=== PATIENT | female | born 1990 | race Caucasian/White ===

== ENCOUNTER 2023-05-21 09:40 | Outpatient (AMB) | payer OTHER, SELFPAY ==
--- NOTE | 2023-05-21 09:49 | AM.OFFWIN_ITS ---
Intake Vital Signs 05/21/23 09:53 Height 5 ft 7 in Weight 244 lb BMI 38.2 BP 130/80 Blood Pressure Location Lt brachial Position Sitting Pulse 102 H Pulse Source Pulse Oximeter Temp 97.8 F Temp Source Temporal Artery Scan Pulse Oximetry (%) 98 Oxygen Delivery Method Room Air Intake Visit Reasons: EP diarhea dry heaves Intake Note: pt is here today for diarrhea dry hives started 1 week ago Patient Tobacco Use Status: Never used Tobacco Allergies No Known Allergies Allergy (Verified 05/21/23 09:51) Do you need a note to return to daycare/school/sports/work: No HPI HPI Comments History of Present Illness Details 33 y/o female patient who presents to [facility] in clinic with c/o diarrhea that started Friday. Reports symptoms on/off. She did not have Diarrhea Fri and . She has been Taking Pepto and Probiotic OTC with some relief. Denies nausea, vomiting, fevers or chills. Denies severe abd pain. Pt reports that symptoms started right after she ate out at a restaurant Sat. [facility] Medical History (Updated 04/16/22 @ 11:30 by Rohini Burnette MD) Obesity, morbid (more than 100 lbs over ideal weight or BMI > 40) Refused influenza vaccine Elevated systolic blood pressure reading without diagnosis of hypertension Hx of ectopic Hx of herpes zoster Surgical History (Updated 04/16/22 @ 11:05 by Rohini Burnette MD) Hx of appendectomy S/P unilateral salpingo-oophorectomy Family History (Updated 04/16/22 @ 11:08 by Rohini Burnette MD) Mother Depression Psoriasis Maternal Grandmother Breast cancer Social History Housing: House Patient Tobacco Use Status: Never used Tobacco e-Cigarette/Vaping Use: Never Used service: No Current occupational status: employed Cognitive needs: No Hearing needs: No Vision needs: Yes Female Reproductive History Menstrual Age of Menarche: 8 Review of Systems Const All systems reviewed & are unremarkable except as noted in HPI and below Physical Exam Vital Signs: Last Vital Signs Temp 97.8 F 05/21/23 09:53 Pulse 102 H 05/21/23 09:53 BP 130/80 05/21/23 09:53 Pulse Ox 98 05/21/23 09:53 Oxygen Delivery Method Room Air 05/21/23 09:53 BMI result Body Mass Index 38.2 Const General: comfortable and no acute distress Orientation/consciousness: patient oriented x3 GI Inspection: Yes normal to inspection, No distended and Yes Abdominal panniculus present Palpation (GI): Soft to palpation, nontender, no guarding, not rigid, No hepatosplenomegaly present and No Rebound tenderness present Percussion: Yes normal to percussion Auscultation: normal bowel sounds Rectal Exam - Female: deferred Neuro General: patient oriented x3 Gait exam (Neuro): Normal gait present Assessment & Plan Assessment & Plan (1) Diarrhea: Code(s): R19.7 - Diarrhea, unspecified Qualifiers: Diarrhea type: unspecified type Qualified Code(s): R19.7 - Diarrhea, unspecified Plan: - Symptoms mild - OTC remedies - Imodium PRN - BLAND diet - Hydrate well with fluids. - RTC is symptoms worse. Plan - Symptoms mild - OTC remedies - Imodium PRN - BLAND diet - Hydrate well with fluids. - RTC is symptoms worse. Coding Level of Care Code Est Pt Level 3 (98984) Diagnoses Diarrhea, unspecified type R19.7 Diarrhea type: unspecified type Time Spent (min) 15
[2023-05-21 09:53] VITALS: BP 130/80; PULSE 102; TEMP 36.6; O2SAT 98; BMI 38.2
== END 2023-05-21 11:57 | disposition home or self-care (01) ==
PROVIDERS: PCP Internal Medicine; Visit Provider Nurse Practitioner Family
DX: R19.7 Diarrhea, unspecified (principal)
CPT/HCPCS: 99213

== ENCOUNTER 2023-10-09 09:22 | Outpatient (AMB) | payer OTHER, SELFPAY ==
--- NOTE | 2023-10-09 09:38 | MHC.PC.OV ---
Vital Signs 10/09/23 09:51 Height 5 ft 7 in Weight 242 lb BMI 37.9 BP 130/86 Blood Pressure Location Lt brachial Position Sitting Pulse 71 Pulse Source Pulse Oximeter Pulse Oximetry (%) 98 Oxygen Delivery Method Room Air Intake Visit Reasons: PE Intake Note: Pt is here today for her PE Allergies No Known Allergies Allergy (Verified 10/09/23 10:21) Medication List - Last Reconciled 10/09/23 by Rohini Burnette MD etonogestrel-ethinyl estradiol 0.12-0.015 mg/24 hr (NuvaRing) vag rings vaginal Tobacco use date assessed: 10/09/23 Dental Screening Dental Screen Date: 10/09/23 Did you have a dental visit in the last 12 months?: Yes Did you have a dental problem in the last 6 months where you did not have access to dental care?: No Was dental information given to patient?: Patient has dentist HPI PE HPI Details 33-year-old lady here today for physical exam. She is currently being followed by herDr. Sia Aceves at [facility] and is currently on NuvaRing for control. She had a Pap smear done 05/22/2023 which showed ASCUS. [facility] Medical History (Updated 10/12/23 @ 16:11 by Rohini Burnette MD) Vitamin D deficiency ASCUS (atypical squamous cells of undetermined significance) on gynecologic Papanicolaou smear complicating , antepartum Obesity, morbid (more than 100 lbs over ideal weight or BMI > 40) Refused influenza vaccine Hx of ectopic Hx of herpes zoster Surgical History Hx of appendectomy S/P unilateral salpingo-oophorectomy Family History Mother Depression Psoriasis Maternal Grandmother Breast cancer Social History Housing: House Patient Tobacco Use Status: Never used Tobacco e-Cigarette/Vaping Use: Never Used service: No Current occupational status: employed Cognitive needs: No Hearing needs: No Vision needs: Yes Female Reproductive History Menstrual Age of Menarche: 8 Questionnaire PHQ-9 Over the last 2 weeks, how often have you been bothered by any of the following problems? 1. Little interest or pleasure in doing things: not at all 2. Feeling down, depressed, or hopeless: not at all 3. Trouble falling or staying asleep, or sleeping too much: not at all 4. Feeling tired or having little energy: not at all 5. Poor appetite or overeating: several days 6. Feeling bad about yourself - or that you are a failure or have let yourself or your family down: not at all 7. Trouble concentrating on things, such as reading the newspaper or watching television: not at all 8. Moving or speaking so slowly that other people could have noticed. Or the opposite - being so fidgety or restless that you have been moving around a lot more than usual: not at all 9. Thoughts that you would be better off or of hurting yourself in some way: not at all Total score: 1 Depression Screening Interpretation: Negative Depression Screening Done: Yes 67186 - PHQ-9 Billing: Yes Source: Developed by Drs. Jose J Veliz, Farida Mahoney, Anand Patten and colleagues, with an educational ezequiel from [employer]. Thrive Questionnaire Date Thrive assessed: 04/16/22 I am a: Patient What is your living situation today?: I have a steady place to live Within the past 12 months, did the food you bought not last and you didn't have the money to get more?: I choose not to answer this question Within the past 12 months, did you worry whether your food would run out before you got money to buy more?: Never true Do you have trouble paying for medicines?: No Do you have trouble getting transportation to medical appointments?: No Do you have trouble paying your heating and electricity bill?: I choose not to answer this question Do you have trouble taking care of your child, family member or friend?: No Do you have trouble with day-to-day activities such as bathing, preparing meals, shopping, managing finances, etc.?: No Are you currently unemployed and looking for a job?: No Are you interested in more education?: No Please select the resources that you would like help with: Housing/Intermediate Currently or been in a relationship where the following occur: No concerns reported THRIVE Score: 0 AUDIT C Alcohol Use Questionnaire (AUDIT-C) 1. How often do you have a drink containing alcohol?: Monthly or less 2. How many drinks containing alcohol do you have on a typical day when you are drinking?: 1 or 2 3. How often do you have six or more drinks on one occasion?: Never Total Score: 1 SHANON-7 AMB Questionnaire SHANON-7 Date SHANON - 7 assessed: 04/16/22 Feeling nervous, anxious, or on edge: 1 = Several days Not being able to stop or control worryin = Not at all Worrying too much about different things: 0 = Not at all Trouble relaxin = Not at all Being so restless that it is hard to sit still: 0 = Not at all Becoming easily annoyed or irritable: 0 = Not at all Feeling afraid as if something awful might happen: 0 = Not at all Total SHANON-7 score (0-4 normal; 5-9 mild; 10-14 moderate; 15-21 severe): 1 Source: Developed by Drs. Jose J Veliz, Farida Mahoney, Anand Patten and colleagues, with an educational ezequiel from [employer]. SHANON-7 Assessment Billing SHANON-7 Assessment Tool: SHANON-7 Assessment 60843 Review of Systems Const Denies body aches, Denies fatigue, Denies fever(s), Denies headache(s) and Denies weakness Eyes Denies change in vision ENT Denies dizziness, Denies headache(s) and Denies nasal congestion Card Denies chest pain, Denies lightheadedness, Denies palpitations and Denies dyspnea Resp Denies chest congestion, Denies cough, Denies dyspnea and Denies wheezing GI Denies abdominal pain, Denies change in bowel habits and Denies heartburn Denies hematuria, Denies urinary frequency, Denies dysuria and Denies urinary urgency Musc Reports no additional complaints Skin/Breast Denies breast pain, Denies breast mass, Denies lesions and Denies rash Neuro Denies dizziness, Denies headache(s) and Denies weakness Psych Reports no additional complaints Endo Denies fatigue, Denies polydipsia, Denies polyuria and Denies palpitations Mk/Lymph Denies easy bruising Aller/Immun Denies seasonal rhinorrhea and Denies wheezing Physical exam (Primary Care) Vital Signs: Last Vital Signs Pulse 71 07/18/24 09:51 BP 130/86 10/09/23 09:51 Pulse Ox 98 10/09/23 09:51 Oxygen Delivery Method Room Air 10/09/23 09:51 BMI result Body Mass Index 37.9 BMI Assessment/Plan discussion: High BMI High, discussed plan: lifestyle, weight reduction, dietary and physical activity Tobacco/Smoking Status: Tobacco use Status Tobacco use date assessed 10/09/23 10/09/23 09:40 Patient Tobacco Use Status Never used Tobacco 10/09/23 09:39 e-Cigarette/Vaping Use Never Used 10/09/23 09:39 PHQ-9: PHQ-9 Score PHQ-9: Total score 1 10/09/23 10:22 Depression Screening Interpretation: Negative Thrive Assessment: Date of Thrive Assessment Date Thrive assessed 04/16/22 10/09/23 09:39 Currently or been in a relationship where the following occur: No concerns reported Const General: comfortable, no acute distress, alert, awake and Physically active Nutritional Appearance: obese morbidly obese Orientation/consciousness: patient oriented x3 HENMT Head: Yes normocephalic and Yes atraumatic Ears: hearing grossly normal bilaterally, external ears normal and TM's normal bilaterally General nose exam: Normal external nose present and No nasal discharge present Face and sinus: Yes normal facial exam and Yes face symmetric Mouth: Normal oral and palatal mucosa present, oropharynx normal and moist mucous membranes Eyes General: appearance normal, both eyes and all related structures Neck Neck: Yes full ROM, Yes no lymphadenopathy and Yes supple Thyroid: Thyroid normal Chest Chest palpation & inspection: normal inspection of the chest Breast/axilla inspection: normal inspection of the breasts Breast/axilla palpation: normal palpation of the breasts Resp Effort & Inspection: normal respiratory effort and able to speak in complete sentences Auscultation: clear to auscultation bilaterally Cardio Palpation: normal PMI Rate: regular rate Rhythm: regular rhythm Heart sounds: S1 normal heart sound present and S2 normal heart sound present GI Inspection: Yes obesity Palpation (GI): Soft to palpation, nontender, no guarding and no masses Auscultation: normal bowel sounds General: Yes no CVA tenderness Back/Spine/Pelvis Back: no CVA tenderness and No back tenderness Skin General skin exam: no rashes or lesions noted Neuro General: patient oriented x3, gait normal, tone normal, moves all extremities and Normal light touch and pain sensation Extrem General: Yes full ROM, Yes no clubbing, cyanosis or edema, Yes no calf tenderness and Yes normal gait Psych Appearance: grossly normal and well kempt Mental Status: mental status grossly normal Speech and movement: Normal speech and movement present Affect: normal affect Attitude: cooperative Thought process: Normal thought process present Assessment and Plan Assessment & Plan (1) Annual visit for general adult medical examination with abnormal findings: Code(s): Z00.01 - Encounter for general adult medical examination with abnormal findings Plan: Will check appropriate labs. Recommended dental visit every 6 months and regular eye exams, at least every 2 years. Take adequate calcium in diet and vitamin-D 3 at 2000 IU per cap once a day, in addition to weight-bearing exercises to help maintain good muscle tone and weight control. Instructed to do self-breast exam, and recommended to get yearly mammogram, starting at age 40. Patient has declined getting flu vaccines in the past has had COVID vaccines in the past but does not want to get the booster, up-to-date with Tdap vaccine (2) Obesity, morbid (more than 100 lbs over ideal weight or BMI > 40): Code(s): E66.01 - Morbid (severe) obesity due to excess calories Plan: Your BMI is above the ideal range. Discussed need to increase activity and weight reduction. Recommended focusing on improving health instead of dieting. Mediterranean diet is a healthy diet that helps, limit food high in fat, sugar, and calories. Eat slowly, pay attention to portion sizes, plan your meals ahead of time, start regular physical activity, at least 150 minutes of moderate intensity exercise, or 90 minutes per week of vigorous exercise. Keeping a food diary, tracking what you eat and your physical activity can help assess what improvements you can make. There are many health problems associated with being overweight/obese, so it is important to improve your diet and exercise. There are medications and surgical options available, but Lifestyle changes are the 1st step. (3) Vitamin D deficiency: Code(s): E55.9 - Vitamin D deficiency, unspecified Plan: Will check vitamin-D level (4) Refused influenza vaccine: Code(s): Z28.21 - Immunization not carried out because of patient refusal (5) ASCUS (atypical squamous cells of undetermined significance) on gynecologic Papanicolaou smear complicating , antepartum: Comment: Seen on Pap 05/22/[address] Aceves at [facility] Code(s): O28.2 - Abnormal cytological finding on screening of mother; R87.619 - Unspecified abnormal cytological findings in specimens from cervix uteri Plan: Currently followed by Dr. Aceves at [facility] Orders: Orders Lipid Panel 10/11/23 E55.9 - Vitamin D deficiency, unspecified, E66.01 - Morbid (severe) obesity due to excess calories, Z13.1 - Encounter for screening for diabetes mellitus, Z13.220 - Encounter for screening for lipoid disorders Vitamin D 25-OH Total 10/11/23 E55.9 - Vitamin D deficiency, unspecified, E66.01 - Morbid (severe) obesity due to excess calories, Z13.1 - Encounter for screening for diabetes mellitus, Z13.220 - Encounter for screening for lipoid disorders Glucose Fasting 10/11/23 E55.9 - Vitamin D deficiency, unspecified, E66.01 - Morbid (severe) obesity due to excess calories, Z13.1 - Encounter for screening for diabetes mellitus, Z13.220 - Encounter for screening for lipoid disorders Coding Level of Care Code Est Pt Prev Care 18-39y(27411) Diagnoses Annual visit for general adult medical examination with abnormal findings Z00.01 Obesity, morbid (more than 100 lbs over ideal weight or BMI > 40) E66.01 Vitamin D deficiency E55.9 Refused influenza vaccine Z28.21 ASCUS (atypical squamous cells of undetermined significance) on gynecologic Papanicolaou smear complicating , antepartum O28.2; R87.619 Additional Codes SHANON-7 Assessment Billing - SHANON-7 Assessment Tool: SHANON-7 Assessment 55092 ([id number])
[2023-10-09 09:51] VITALS: BP 130/86; PULSE 71; O2SAT 98; BMI 37.9
== END 2023-10-09 10:39 | disposition home or self-care (01) ==
PROVIDERS: PCP Internal Medicine; Visit Provider Internal Medicine
DX: Z00.00 Encounter for general adult medical examination without abnormal findings (principal); E66.01 Morbid (severe) obesity due to excess calories; E55.9 Vitamin D deficiency, unspecified; Z68.37 Body mass index [BMI] 37.0-37.9, adult; Z28.21 Immunization not carried out because of patient refusal; O28.2 Abnormal cytological finding on antenatal screening of mother; R87.619 Unspecified abnormal cytological findings in specimens from cervix uteri
CPT/HCPCS: 99395

== ENCOUNTER 2023-10-11 13:05 | Outpatient (REF) | payer OTHER, SELFPAY ==
[2023-10-11 15:54] LABS: Cholesterol 174 mg/dL (<200); Glucose Fasting 82 mg/dL (60-99); HDL Cholesterol 53 mg/dL (>40); LDL Cholesterol Calculated 84 mg/dL (<100); Triglycerides 188 mg/dL (<150)
[2023-10-11 16:09] LABS: Vitamin D 25-OH Total 71.8 ng/mL (>30)
== END 2023-10-11 13:06 | disposition home or self-care (01) ==
LOC: HO.HMGCLDS 13:05
PROVIDERS: PCP Internal Medicine; Visit Provider Internal Medicine
DX: E66.01 Morbid (severe) obesity due to excess calories (principal); Z13.220 Encounter for screening for lipoid disorders; Z13.1 Encounter for screening for diabetes mellitus; E55.9 Vitamin D deficiency, unspecified
CPT/HCPCS: 36415; 80061; 82306; 82947

== ENCOUNTER → 2024-01-08 08:52 | Outpatient (BNVA) | payer OTHER, SELFPAY | PROVIDERS: PCP Internal Medicine ==

== ENCOUNTER 2024-02-05 08:09 | Outpatient (AMB) | payer OTHER, SELFPAY ==
[2024-02-05 08:19] VITALS: BP 130/80; PULSE 80; TEMP 36.6; O2SAT 98
--- NOTE | 2024-02-05 08:19 | MHC.OFFWIV ---
Intake Vital Signs 02/05/24 08:19 Height 5 ft 7 in BP 130/80 Blood Pressure Location Rt brachial Position Sitting Pulse 80 Pulse Source Pulse Oximeter Temp 97.9 F Temp Source Oral Pulse Oximetry (%) 98 Oxygen Delivery Method Room Air Intake Visit Reasons: EP pain in lt shoulder Intake Note: pt is here for pain in left shoulder, lifted boxes at work Patient Tobacco Use Status: Never used Tobacco Allergies No Known Allergies Allergy (Verified 02/05/24 08:20) Do you need a note to return to daycare/school/sports/work: No HPI EP pain in lt shoulder HPI Details This note is constructed using voice recognition software. While every effort has been made to ensure accuracy, balance bridge assembler errors may have been included. The patient is a 33 year old female who presents to the clinic today with left shoulder pain for the past 2 weeks after lifting heavy boxes at work. She denies numbness and tingling in her hands. She does report that she has got a history of anxiety, which has led her to be concerned ?more than is appropriate? about the shoulder pain. She has intermittently tried ibuprofen and heat which have helped each time she uses it. [facility] Medical History (Updated 10/12/23 @ 16:11 by Rohini Burnette MD) Vitamin D deficiency ASCUS (atypical squamous cells of undetermined significance) on gynecologic Papanicolaou smear complicating , antepartum Obesity, morbid (more than 100 lbs over ideal weight or BMI > 40) Refused influenza vaccine Hx of ectopic Hx of herpes zoster Surgical History Hx of appendectomy S/P unilateral salpingo-oophorectomy Family History Mother Depression Psoriasis Maternal Grandmother Breast cancer Social History Housing: House Patient Tobacco Use Status: Never used Tobacco e-Cigarette/Vaping Use: Never Used service: No Current occupational status: employed Cognitive needs: No Hearing needs: No Vision needs: Yes Female Reproductive History Menstrual Age of Menarche: 8 Review of Systems Const All systems reviewed & are unremarkable except as noted in HPI and below Physical Exam Vital Signs: Last Vital Signs Temp 97.9 F 11/14/24 08:19 Pulse 80 02/05/24 08:19 BP 130/80 02/05/24 08:19 Pulse Ox 98 02/05/24 08:19 Oxygen Delivery Method Room Air 02/05/24 08:19 Const General: cooperative, healthy appearing, comfortable, no acute distress and well developed Orientation/consciousness: patient oriented x3 Limitations: no limitations Neck Neck: Yes normal visual inspection and Yes full ROM Resp Effort & Inspection: normal respiratory effort and able to speak in complete sentences Auscultation: clear to auscultation bilaterally Cardio Rate: regular rate Rhythm: regular rhythm Heart sounds: normal S1 and S2 Skin General skin exam: no rashes or lesions noted Neuro General: patient oriented x3 Extrem Other: Left shoulder full range of motion. Neck full range of motion. Strength 5/5. Increased muscle bulging left trapezius. Distal neurovascular exam intact. No ecchymosis, erythema, or edema. General: Yes normal to inspection Assessment & Plan Assessment & Plan (1) Strain of left trapezius muscle: Code(s): S46.812A - Strain of other muscles, fascia and tendons at shoulder and upper arm level, left arm, initial encounter Qualifiers: Encounter type: initial encounter Qualified Code(s): S46.812A - Strain of other muscles, fascia and tendons at shoulder and upper arm level, left arm, initial encounter Plan: Advised rest, ice/heat, NSAIDs for pain, and trial of muscle relaxers. Patient declined to have muscle relaxers for daytime use, would like to take for the next 3 days at bedtime only. Advised follow up with worsening or failure to resolve. HEP provided. Plan See above for full details and plan. Medications: New cyclobenzaprine 5 mg PO BEDTIME PRN 3 tabs 0RF Muscle Spasm 3 days Coding Level of Care Code Est Pt Level 3 (88896) Diagnoses Strain of left trapezius muscle, initial encounter S46.812A Encounter type: initial encounter
== END 2024-02-05 11:39 | disposition home or self-care (01) ==
PROVIDERS: PCP Internal Medicine; Visit Provider Registered Nurse
DX: S46.812A Strain of other muscles, fascia and tendons at shoulder and upper arm level, left arm, initial encounter (principal)

== ENCOUNTER → 2024-02-12 07:27 | Outpatient (BNVA) | payer OTHER, SELFPAY | PROVIDERS: PCP Internal Medicine ==

== ENCOUNTER 2024-07-05 07:57 | Outpatient (REF) | payer OTHER, SELFPAY ==
--- OUTSIDE RECORDS SUMMARY | 2024-07-05 08:01 | XMS_ITS | Clinical Summary ---
Author Organization [facility] Facility Address [address] [place] [address] Care Team Providers Care Gas Leak Inspector Name Role Phone Tracy Burnette MD Primary Care Provider [phone] Social History Tobacco Use Types Packs/Day Years Used Date Smoking Tobacco: Never Assessed Comments Unknown Sex and Gender Information Value Date Recorded Sex Assigned at Not on file Legal Sex Female 2:39 PM EST Gender Identity Not on file Sexual Orientation Not on file Plan of Treatment Health Maintenance Due Date Last Done Comments Influenza Vaccine (Season Ended) 2024 Hepatitis B Vaccine Completed 03/11/2001, 10/27/2000, 08/27/2000 Pneumococcal Vaccine: Peds ( 0 to 5 Years) and At-Risk Patients (6 to 49 Years) Aged Out No longer eligi ble based on patient's age to complete this topic Insurance [employer]ign[employer] C[employer] Care Teams Gas Leak Inspector Relationship Specialty Start Date End Date Tracy Burnette MD [facility] [place] [address] PCP - General Internal Medicine 04/30/22
--- OUTSIDE RECORDS SUMMARY | 2024-07-05 08:01 | XMS_ITS | Patient Health Record ---
Demographics Address [address] [place] [address] Mobile Preferred Language en Marital Status unmarried Adventism Affiliation Unknown Race White Ethnic Group Not or Lati no Author Organization Total [facility] Address [address] [place] [address] Care Team Providers Care Pricer Name Role Phone Xiomy Ogden Unavailable [phone] Reason For Referral No Information Immunizations Vaccine Route Administration Date Status Comme nts HPV (human papillomavirus), quadrivalent, 3 dose schedule Unknown 06/11/2011 Pending HPV (human papillomavirus), quadrivalent, 3 dose schedule Intramuscular 12/30/2012 Pending HPV (human papillomavirus), quadrivalent, 3 dose schedule Intramuscular 03/10/2013 Pending HPV (human papillomavirus), quadrivalent, 3 dose schedule Intramuscular 07/07/2013 Pending Social History Tobacco Use: Social History Observation Description Date Details (start date - stop date) Never Smoker NA - NA Tobacco Use/Smoking Question Answer Notes Are you a nonsmoker Alcohol Screen (Audit-C) Question Answer Notes Did you have a drink contain ing alcohol in the past year? Yes How often did you have a dri nk containing alcohol in the past year? 2 to 4 times a month (2 points) How many drinks did you have on a typical day when you were drinking in the past year? 1 or 2 drinks (0 point) Points 2 Interpretation Negative Section Notes: Vegetarian Vegetarian Vegetarian Vegetarian Vegetarian Problems Problem Type SNOMED Code ICD Code Onset Dates Problem Status W/U Status Risk Notes Problem Gynecological examination normal ([id number]) Routine gynecological examination (V72.31) Active confirmed Diag Plan Of Treatment Pending Test Test Name Order Date TYPE AND SCREEN 08/02/2015 Insurance Providers Payer Name Payer Address Payer Phone Subscriber Number Group Number Insured Name Patient Relationship to Insured Coverage Start Date Coverage End Date [facility] [address] [place] [address] [id number] RENETTA FITZPATRICK Self - patient is the insured Medical (General) History Medical History History ICD Code PE Tubes Pelvic and perineal pain R10.2 Surgical History Surgery Date(Month/Year) PE Tubes Appendectomy with Dr. Urena 08/[address] 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
[2024-07-05 11:14] LABS: Anion Gap 13 (12-20); Blood Urea Nitrogen 11 mg/dL (9-16); Calcium 9.5 mg/dL (8.4-10.2); Carbon Dioxide 23 mmol/L (22-29); Chloride 107 mmol/L (96-108); Estimated Glomerular Filt Rate > 60; Glucose Fasting 92 mg/dL (60-99); Potassium 4.6 mmol/L (3.3-5.1); Sodium 138 mmol/L (135-145)
== END 2024-07-05 07:58 | disposition home or self-care (01) ==
LOC: HO.HMGCLDS 07:57
PROVIDERS: PCP Internal Medicine; Visit Provider Internal Medicine
DX: I10 Essential (primary) hypertension (principal)
CPT/HCPCS: 36415; 80048

== ENCOUNTER → 2024-07-08 09:00 | Outpatient (BNVA) | payer OTHER, SELFPAY | PROVIDERS: PCP Internal Medicine ==

== ENCOUNTER 2024-07-14 08:30 | Outpatient (AMB) | payer OTHER, SELFPAY ==
--- OUTSIDE RECORDS SUMMARY | 2024-07-14 08:54 | XMS_ITS | Clinical Summary ---
Author Organization [facility] Facility Address [address] [place] [address] Care Team Providers Care Field Interviewer Name Role Phone Tracy Burnette MD Primary Care Provider [phone]- [phone] Social History Tobacco Use Types Packs/Day Years [...] this topic Insurance [employer] C[employer] Care Teams Field Interviewer Relationship Specialty Start Date End Date Tracy Burnette [place] [address] PCP - General Internal Medicine 04/30/22
--- OUTSIDE RECORDS SUMMARY | 2024-07-14 08:54 | XMS_ITS | Patient Health Record ---
Demographics Address [address] [address] [place] [address] Mobile Preferred Language en Marital Status unmarried Nondenominational Affiliation Unknown Race White Ethnic Group Not or Lati no Author Organization [facility] Address [address] [place] [address] Care Team Providers Care Middle Card Tender Name Role Phone Xiomy Ogden Unavailable [phone] Reason For Referral No Information Immunizations Vaccine [...] Status Risk Notes Problem Gynecological examination normal ([id number]) Routine gynecological examination (V72.31) Active confirmed Diag Plan Of Treatment Pending Test Test Name Order Date TYPE AND SCREEN 08/02/2015 Insurance Providers Payer Name Payer Address Payer Phone Subscriber Number Group Number Insured Name Patient Relationship to Insured Coverage Start Date Coverage End Date [facility] [address] [place] [address] [id number] RENETTA FITZPATRICK Self - patient is the insured Medical (General) History Medical History History ICD Code PE Tubes Pelvic and perineal pain R10.2 Surgical History Surgery Date(Month/Year) PE Tubes Appendectomy with Dr. Urena 08/[address] 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
--- NOTE | 2024-07-14 09:04 | MHC.PC.OV ---
Vital Signs 07/14/24 09:05 07/14/24 09:40 Height 5 ft 7 in Weight 233 lb BMI 36.5 BP 136/90 H 135/90 H Blood Pressure Location Rt brachial Lt brachial Position Sitting Sitting Respiration 15 Pulse 87 Pulse Source Pulse Oximeter Temp 98.6 F Temp Source Oral Pulse Oximetry (%) 100 Oxygen Delivery Method Room Air Intake Visit Reasons: tongue swollen/able to eat or swallow Allergies No Known Allergies Allergy (Verified 07/14/24 09:18) Medication List - Last Reconciled 07/14/24 by Rohini Burnette MD cholecalciferol (vitamin D3) 50 mcg PO DAILY docosahexaenoic acid ( DHA) mg PO etonogestrel-ethinyl estradiol 0.12-0.015 mg/24 hr (NuvaRing) vag rings vaginal Tobacco use date assessed: 07/14/24 Dental Screening Dental Screen Date: 07/14/24 Did you have a dental visit in the last 12 months?: Yes Did you have a dental problem in the last 6 months where you did not have access to dental care?: No Was dental information given to patient?: Patient has dentist HPI tongue swollen/able to eat or swallow HPI Details 34-year-old lady with hypertension, here today for follow-up after she started having swelling of her tongue with indentation decide, which she attributes to losartan. She has been on that for the latest 2 weeks prior to appearance of symptoms. She was advised by the geothermal operations engineer provided to take Benadryl and stop taking losartan right away. Patient reports improvement of symptoms. Denies any difficulty swallowing, no swelling of the lips, no difficulty breathing, no cough or wheezing reported. At present patient states that tongue is almost back to normal, still notice some indentation on sides of her tongue but not as pronounced that it was 2 days ago [facility] Medical History (Updated 07/14/24 @ 09:43 by Rohini Burnette MD) Generalized anxiety disorder Essential hypertension Vitamin D deficiency ASCUS (atypical squamous cells of undetermined significance) on gynecologic Papanicolaou smear complicating , antepartum Obesity, morbid (more than 100 lbs over ideal weight or BMI > 40) Refused influenza vaccine Hx of ectopic Hx of herpes zoster Surgical History Hx of appendectomy S/P unilateral salpingo-oophorectomy Family History Mother Depression Psoriasis Maternal Grandmother Breast cancer Social History Housing: House Patient Tobacco Use Status: Never used Tobacco e-Cigarette/Vaping Use: Never Used service: No Current occupational status: employed Cognitive needs: No Hearing needs: No Vision needs: Yes Female Reproductive History Menstrual Age of Menarche: 8 Questionnaire PHQ-9 Over the last 2 weeks, how often have you been bothered by any of the following problems? 1. Little interest or pleasure in doing things: not at all 2. Feeling down, depressed, or hopeless: not at all 3. Trouble falling or staying asleep, or sleeping too much: not at all 4. Feeling tired or having little energy: not at all 5. Poor appetite or overeating: not at all 6. Feeling bad about yourself - or that you are a failure or have let yourself or your family down: not at all 7. Trouble concentrating on things, such as reading the newspaper or watching television: not at all 8. Moving or speaking so slowly that other people could have noticed. Or the opposite - being so fidgety or restless that you have been moving around a lot more than usual: not at all 9. Thoughts that you would be better off or of hurting yourself in some way: not at all Total score: 0 Depression Screening Interpretation: Negative Depression Screening Done: Yes 35925 - PHQ-9 Billing: Yes Source: Developed by Drs. Jose J Veliz, Farida Mahoney, Anand Patten and colleagues, with an educational ezequiel from [employer]. Thrive Questionnaire Date Thrive assessed: 07/13/24 I am a: Patient What is your living situation today?: I have a steady place to live Within the past 12 months, did the food you bought not last and you didn't have the money to get more?: I choose not to answer this question Within the past 12 months, did you worry whether your food would run out before you got money to buy more?: I choose not to answer this question Do you have trouble paying for medicines?: No Do you have trouble getting transportation to medical appointments?: No Do you have trouble paying your heating and electricity bill?: I choose not to answer this question Do you have trouble taking care of your child, family member or friend?: No Do you have trouble with day-to-day activities such as bathing, preparing meals, shopping, managing finances, etc.?: No Are you currently unemployed and looking for a job?: No Are you interested in more education?: No Please select the resources that you would like help with: None Currently or been in a relationship where the following occur: No concerns reported THRIVE Score: 0 AUDIT C Alcohol Use Questionnaire (AUDIT-C) 1. How often do you have a drink containing alcohol?: Never 2. How many drinks containing alcohol do you have on a typical day when you are drinking?: 1 or 2 3. How often do you have six or more drinks on one occasion?: Never Total Score: 0 SHANON-7 AMB Questionnaire SHANON-7 Date SHANON - 7 assessed: 04/16/22 Feeling nervous, anxious, or on edge: 1 = Several days Not being able to stop or control worryin = Not at all Worrying too much about different things: 1 = Several days Trouble relaxin = Several days Being so restless that it is hard to sit still: 0 = Not at all Becoming easily annoyed or irritable: 1 = Several days Feeling afraid as if something awful might happen: 0 = Not at all Total SHANON-7 score (0-4 normal; 5-9 mild; 10-14 moderate; 15-21 severe): 4 Source: Developed by Drs. Jose J Veliz, Farida Mahoney, Anand Patten and colleagues, with an educational ezequiel from [employer]. Review of Systems Const All systems reviewed & are unremarkable except as noted in HPI and below Physical exam (Primary Care) Vital Signs: Last Vital Signs Temp 98.6 F 07/14/24 09:05 Pulse 87 07/14/24 09:05 Resp 15 07/14/24 09:05 BP 135/90 H 07/14/24 09:40 Pulse Ox 100 07/14/24 09:05 Oxygen Delivery Method Room Air 07/14/24 09:05 BMI result Body Mass Index 36.5 Tobacco/Smoking Status: Tobacco use Status Tobacco use date assessed 07/14/24 07/14/24 09:09 Patient Tobacco Use Status Never used Tobacco 07/14/24 09:09 e-Cigarette/Vaping Use Never Used 07/14/24 09:09 PHQ-9: PHQ-9 Score PHQ-9: Total score 0 07/14/24 09:19 Depression Screening Interpretation: Negative Thrive Assessment: Date of Thrive Assessment Date Thrive assessed 07/13/24 07/14/24 09:09 Currently or been in a relationship where the following occur: No concerns reported Const Other: Alert oriented x3, no acute distress noted ambulatory normal gait HENMT Head: Yes normocephalic Ears: external ears normal, TM's normal bilaterally and EAC's normal General nose exam: Normal external nose present Face and sinus: Yes face symmetric Mouth: Normal oral and palatal mucosa present, oropharynx normal, moist mucous membranes, no audible dysphonia, no drooling, no muffled voice and tongue abnormal (Some scalloping noted on sides of tongue, no swelling seen, no lesions) Eyes General: appearance normal, both eyes and all related structures Neck Neck: Yes normal visual inspection, Yes full ROM, Yes no lymphadenopathy and Yes supple Thyroid: Thyroid normal (Nonpalpable) Resp Effort & Inspection: normal respiratory effort and able to speak in complete sentences Auscultation: clear to auscultation bilaterally and no wheezes Cardio Other: S1-S2 present regular rate and rhythm GI Other: Normal bowel sounds, soft, nontender with no mass palpated Skin General skin exam: no rashes or lesions noted Coding Level of Care Code Est Pt Level 4 (83622) Diagnoses Essential hypertension I10 Allergic reaction caused by a drug T78.40XA Additional Codes PHQ-9 - 77722 - PHQ-9 Billing: Yes ([id number]) Assessment & Plan Assessment & Plan (1) Essential hypertension: Code(s): I10 - Essential (primary) hypertension Category: Medical Plan: Prescription sent for labetalol 50 mg twice a day, fasting labs ordered. See nurse navigator for blood pressure check in 1 week (2) Allergic reaction caused by a drug: Code(s): T78.40XA - Allergy, unspecified, initial encounter Plan: Losartan discontinued Orders: Orders Complete Blood Count Auto Diff 11/20/24 F41.1 - Generalized anxiety disorder, I10 - Essential (primary) hypertension, Z13.1 - Encounter for screening for diabetes mellitus, Z13.220 - Encounter for screening for lipoid disorders Alanine Aminotransferase 11/20/24 F41.1 - Generalized anxiety disorder, I10 - Essential (primary) hypertension, Z13.1 - Encounter for screening for diabetes mellitus, Z13.220 - Encounter for screening for lipoid disorders Basic Metabolic Panel Fasting 11/20/24 F41.1 - Generalized anxiety disorder, I10 - Essential (primary) hypertension, Z13.1 - Encounter for screening for diabetes mellitus, Z13.220 - Encounter for screening for lipoid disorders Aspartate Amino Transferase 11/20/24 F41.1 - Generalized anxiety disorder, I10 - Essential (primary) hypertension, Z13.1 - Encounter for screening for diabetes mellitus, Z13.220 - Encounter for screening for lipoid disorders Lipid Panel 11/20/24 F41.1 - Generalized anxiety disorder, I10 - Essential (primary) hypertension, Z13.1 - Encounter for screening for diabetes mellitus, Z13.220 - Encounter for screening for lipoid disorders TSH reflex Free T4 11/20/24 F41.1 - Generalized anxiety disorder, I10 - Essential (primary) hypertension, Z13.1 - Encounter for screening for diabetes mellitus, Z13.220 - Encounter for screening for lipoid disorders Medications: New labetalol Try initially taking 1/2 tablet or 50 mg twice a day 100 mg PO BID 60 tabs 0RF I10 - Essential (primary) hypertension
[2024-07-14 09:05] VITALS: BP 136/90; PULSE 87; RESP 15; TEMP 37; O2SAT 100; BMI 36.5
[2024-07-14 09:40] VITALS: BP 135/90
== END 2024-07-14 10:41 | disposition home or self-care (01) ==
LOC: HO.HMCC 08:31
PROVIDERS: PCP Internal Medicine; Visit Provider Internal Medicine
DX: I10 Essential (primary) hypertension (principal); T78.40XA Allergy, unspecified, initial encounter

== ENCOUNTER → 2024-07-14 08:30 | Outpatient (BNVA) | payer OTHER, SELFPAY | PROVIDERS: PCP Internal Medicine; Visit Provider Internal Medicine | DX: I10 Essential (primary) hypertension (principal); T46.5X5A Adverse effect of other antihypertensive drugs, initial encounter; Y92.9 Unspecified place or not applicable | CPT/HCPCS: 96127 ==

== ENCOUNTER → 2024-07-23 09:53 | Outpatient (BNVA) | payer OTHER, SELFPAY | PROVIDERS: PCP Internal Medicine ==

== ENCOUNTER 2024-09-23 11:21 | Outpatient (AMB) | payer OTHER, SELFPAY ==
--- NOTE | 2024-09-23 11:44 | AM.OFFWIN_ITS ---
Intake Vital Signs 09/23/24 11:45 Height 5 ft 7 in Weight 233 lb 4 oz BMI 36.5 BP 136/90 H Blood Pressure Location Lt brachial Position Sitting Pulse 88 Pulse Source Pulse Oximeter Temp 98.8 F Temp Source Oral Pulse Oximetry (%) 97 Oxygen Delivery Method Room Air Intake Visit Reasons: EP LT ear pain Intake Note: Patient present with left ear dull ache, with soreness in her jaw times 2 days Patient Tobacco Use Status: Never used Tobacco Ironer Hand Required: No Is last menstrual period known: No Post menopausal: No Patient : No Allergies No Known Allergies Allergy (Verified 07/14/24 09:18) Do you need a note to return to daycare/school/sports/work: No HPI HPI Comments History of Present Illness Details History of Present Illness - The patient is a 34-year-old female pr esenting with jaw pain and soreness. - Reports soreness in the back of the ja w on the left side, associated with jaw movements. - The pain is intermittent and radiates to the left ear. - She states that her pain isn't caused by chewing and talking. - She had pain at the left TMJ when she was resting her face on her hands. - History of ear infections with childho od ear tubes and a burst eardrum. - Bruxism noted, with unsuccessful attem pts at using mouth guards due to gag reflex. - She denies dental pain, gingivitis, fe michelle, chills, CP, SOB, JUDD, cold symptoms, discharge in the ear, facial swelling, or hearing loss. Physical Exam General: Cooperative, healthy appearing, comfortable, no acute distress and well developed Orientation: Patient oriented x3 Head: FROM of the TMJ, no click noted. TTP of the left TMJ. No TTP of the mandible or facial bones bilaterally. Ears: Hearing grossly normal bilaterally. No tragus or mastoid tenderness noted bilaterally. Some ear wax present in the left canal, TM is normal and bony landmarks are normal and visualized. No discharge or swelling to the canal. Right ear is normal. Nose: Normal external nose present Face and sinus: Normal facial exam, no sinus pain to palpation Eyes: Appearance normal, both eyes and all related structures Neck: Normal visual inspection and Yes full ROM. No lymphadenopathy noted. Respiratory: Normal respiratory effort and able to speak in complete sentences. Clear to auscultation bilaterally. No w/r/r noted. Cardiovascular: Regular rate and rhythm. Normal S1 and S2. No m/r/g noted. Skin: No rashes or lesions noted Patient was informed and verbally consented to the use of an ambient scribe for clinic note documentation during this visit. [facility] Medical History (Updated 07/14/24 @ 09:43 by Rohini Burnette MD) Generalized anxiety disorder Essential hypertension Vitamin D deficiency ASCUS (atypical squamous cells of undetermined significance) on gynecologic Papanicolaou smear complicating , antepartum Obesity, morbid (more than 100 lbs over ideal weight or BMI > 40) Refused influenza vaccine Hx of ectopic Hx of herpes zoster Surgical History Hx of appendectomy S/P unilateral salpingo-oophorectomy Family History Mother Depression Psoriasis Maternal Grandmother Breast cancer Social History Housing: House Patient Tobacco Use Status: Never used Tobacco e-Cigarette/Vaping Use: Never Used Patient : No service: No Current occupational status: employed Cognitive needs: No Hearing needs: No Vision needs: Yes Female Reproductive History Menstrual Age of Menarche: 8 Review of Systems Const All systems reviewed & are unremarkable except as noted in HPI and below Physical Exam Vital Signs: Last Vital Signs Temp 98.8 F 09/23/24 11:45 Pulse 88 09/23/24 11:45 BP 136/90 H 09/23/24 11:45 Pulse Ox 97 09/23/24 11:45 Oxygen Delivery Method Room Air 09/23/24 11:45 BMI result Body Mass Index 36.5 Assessment & Plan Assessment & Plan (1) Jaw pain: Code(s): R68.84 - Jaw pain Plan Most likely TMJ vs jaw pain vs ear infection Plan - Tylenol or motrin as needed for pain - Recommend consultation with a dentist for a custom-fitted mouth guard to address bruxism and alleviate jaw muscle soreness. - Continue monitoring for any changes in symptoms or development of new symptoms related to the jaw or ear. Coding Level of Care Code Est Pt Level 3 (90598) Diagnoses Jaw pain R68.84
[2024-09-23 11:45] VITALS: BP 136/90; PULSE 88; TEMP 37.1; O2SAT 97; BMI 36.5
--- OUTSIDE RECORDS SUMMARY | 2024-09-23 12:08 | XMS_ITS | Clinical Summary ---
Author Organization [facility] Facility Address [address] [place] [address] Care Team Providers Care Exerciser Name Role Phone Tracy Burnette MD Primary Care Provider [phone] Social History Tobacco Use Types Packs/Day Years [...] this topic Insurance [employer] Care Teams Exerciser Relationship Specialty Start Date End Date Tracy Burnette MD [place] [address] PCP - General Internal Medicine 04/30/22
== END 2024-09-23 12:40 | disposition home or self-care (01) ==
PROVIDERS: PCP Internal Medicine; Visit Provider Physician Assistant Medical
DX: R68.84 Jaw pain (principal)

== ENCOUNTER 2024-11-19 07:23 | Outpatient (REF) | payer OTHER, SELFPAY ==
--- OUTSIDE RECORDS SUMMARY | 2024-11-19 07:25 | XMS_ITS | Patient Health Record ---
Demographics Address [address] [place] [address] Mobile Preferred Language en Marital Status unmarried Christianity Affiliation Unknown Race White Ethnic Group Not or Lati no Author Organization Total [facility] Address [address] [place] [address] Care Team Providers Care Carpet Measurer Name Role Phone Xiomy Ogden Unavailable [phone] Reason For Referral No Information Immunizations Vaccine [...] Status Risk Notes Problem Gynecological examination normal ([id number]) Routine gynecological examination (V72.31) Active confirmed Diag Plan Of Treatment Pending Test Test Name Order Date TYPE AND SCREEN 08/02/2015 Insurance Providers Payer Name Payer Address Payer Phone Subscriber Number Group Number Insured Name Patient Relationship to Insured Coverage Start Date Coverage End Date [facility] [address] [place] [address] [phone] [id number] RENETTA FITZPATRICK Self - patient is the insured Medical (General) History Medical History History ICD Code PE Tubes Pelvic and perineal pain R10.2 Surgical History Surgery Date(Month/Year) PE Tubes Appendectomy with Dr. Urena 08/[address] 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
--- OUTSIDE RECORDS SUMMARY | 2024-11-19 07:25 | XMS_ITS | Clinical Summary ---
Author Organization [facility] Facility Address [address] [place] [address] Care Team Providers Care Chief Of Pediatric Urology Name Role Phone Tracy Burnette MD Primary Care Provider [phone]- [phone] Social History Tobacco Use Types Packs/Day Years Used Date Smoking Tobacco: Never Assessed Comments Unknown Sex and Gender Information Value Date Recorded Sex Assigned at Not on file Legal Sex Female 2:39 PM EST Gender Identity Not on file Sexual Orientation Not on file Plan of Treatment Health Maintenance Due Date Last Done Comments Influenza Vaccine (#1) 2024 Hepatitis B Vaccine Completed 03/11/2001, 10/27/2000, 08/27/2000 Pneumococcal Vaccine: Peds ( 0 to 5 Years) and At-Risk Patients (6 to 49 Years) Aged Out No longer eligi ble based on patient's age to complete this topic Insurance [employer] Care Teams Chief Of Pediatric Urology Relationship Specialty Start Date End Date Tracy Burnette MD [facility] [place] [address] PCP - General Internal Medicine 04/30/22
[2024-11-19 10:04] LABS: MANUAL DIFF FLAG NO
[2024-11-19 10:21] LABS: Hematocrit 43.1 % (37.0-47.0); Hemoglobin 14.0 g/dl (12.0-16.0); Imm Gran Abs Auto 0.01 X10*3/uL (0.00-0.03); Imm Gran Pct Auto 0.1 % (0.0-0.4); Lymphocytes Absolute Auto 1.8 X10*3/uL (1.2-4.9); Mean Corpuscular HGB Conc 32.5 g/dl (31.0-35.0); Mean Corpuscular Hemoglobin 28.2 pg (27.0-33.0); Mean Corpuscular Volume 86.7 fL (80.0-98.0); NRBC Abs Auto 0.000 X10*3/uL (0.0-0.012); NRBC Pct Auto 0.0 /100WBC (0.0-0.2); Platelet Count 411 X10*3/uL (160-400); Red Blood Count 4.97 X10*6/uL (4.20-5.50); White Blood Count 8.7 X10*3/uL (4.8-10.8)
[2024-11-19 11:39] LABS: Alanine Aminotransferase 17 U/L (0-31); Anion Gap 14 (12-20); Aspartate Amino Transferase 22 U/L (5-31); Blood Urea Nitrogen 13 mg/dL (9-16); Calcium 9.4 mg/dL (8.4-10.2); Carbon Dioxide 22 mmol/L (22-29); Chloride 106 mmol/L (96-108); Cholesterol 166 mg/dL (<200); Estimated Glomerular Filt Rate > 60; HDL Cholesterol 40 mg/dL (>40); Potassium 4.9 mmol/L (3.3-5.1); Sodium 137 mmol/L (135-145); Triglycerides 88 mg/dL (<150)
== END 2024-11-19 07:24 | disposition home or self-care (01) ==
LOC: HO.HMGCLDS 07:23
PROVIDERS: PCP Internal Medicine; Visit Provider Internal Medicine
DX: Z13.220 Encounter for screening for lipoid disorders (principal); Z13.1 Encounter for screening for diabetes mellitus; I10 Essential (primary) hypertension; F41.1 Generalized anxiety disorder
CPT/HCPCS: 36415; 80048; 80061; 84443; 84450; 84460; 85025

== ENCOUNTER 2024-11-24 12:31 | Outpatient (AMB) | payer OTHER, SELFPAY ==
--- NOTE | 2024-11-24 12:33 | MHC.PC.OV ---
Vital Signs 11/24/24 12:34 Height 5 ft 7 in Weight 245 lb BMI 38.4 BP 140/100 H Blood Pressure Location Lt brachial Position Sitting Respiration 16 Pulse 75 Pulse Source Pulse Oximeter Temp 98.7 F Temp Source Oral Pulse Oximetry (%) 99 Oxygen Delivery Method Room Air Intake Visit Reasons: PE Intake Note: Pt is here today for her PE Allergies No Known Allergies Allergy (Verified 11/29/24 00:36) Medication List - Last Reconciled 11/24/24 by Rohini Burnette MD cholecalciferol (vitamin D3) 50 mcg PO DAILY coenzyme Q10 100 mg PO DAILY docosahexaenoic acid ( DHA) mg PO labetalol 50 mg (1/2 x 100 mg) PO BID norethindrone acetate 5 mg PO DAILY Tobacco use date assessed: 11/24/24 Dental Screening Dental Screen Date: 11/24/24 Did you have a dental visit in the last 12 months?: Yes Did you have a dental problem in the last 6 months where you did not have access to dental care?: No Was dental information given to patient?: Patient has dentist HPI PE HPI Details - The patient is a 34-year-old female with history of hypertension, here today for her physical exam. - Essential Hypertension: Managed with labetalol 50 mg twice daily, recent readings of 153/90 mmHg and 140/100 mmHg, considering dosage adjustment. - Infertility: Six-year history of trying to conceive, previous ectopic pregnancies, suspected endometriosis, and past embryo transfers with complications. - Hyperlipidemia: LDL cholesterol increased from 88 to 109 mg/dL on recent labs done, total cholesterol decreased due to lower triglycerides. - Preventative Care: Up to date with eye and dental exams, recent Pap smear with atypical cells but negative for HPV, goes to [facility] Medical History Generalized anxiety disorder Essential hypertension Vitamin D deficiency ASCUS (atypical squamous cells of undetermined significance) on gynecologic Papanicolaou smear complicating , antepartum Obesity, morbid (more than 100 lbs over ideal weight or BMI > 40) Refused influenza vaccine Hx of ectopic Hx of herpes zoster Surgical History Hx of appendectomy S/P unilateral salpingo-oophorectomy Family History Mother Depression Psoriasis Maternal Grandmother Breast cancer Social History Housing: House Patient Tobacco Use Status: Never used Tobacco e-Cigarette/Vaping Use: Never Used service: No Current occupational status: employed Cognitive needs: No Hearing needs: No Vision needs: Yes Female Reproductive History Menstrual Age of Menarche: 8 Questionnaire Thrive Questionnaire Date Thrive assessed: 07/13/24 I am a: Patient What is your living situation today?: I have a steady place to live Within the past 12 months, did the food you bought not last and you didn't have the money to get more?: I choose not to answer this question Within the past 12 months, did you worry whether your food would run out before you got money to buy more?: I choose not to answer this question Do you have trouble paying for medicines?: No Do you have trouble getting transportation to medical appointments?: No Do you have trouble paying your heating and electricity bill?: I choose not to answer this question Do you have trouble taking care of your child, family member or friend?: No Do you have trouble with day-to-day activities such as bathing, preparing meals, shopping, managing finances, etc.?: No Are you currently unemployed and looking for a job?: No Are you interested in more education?: No Please select the resources that you would like help with: None Currently or been in a relationship where the following occur: No concerns reported THRIVE Score: 0 SHANON-7 AMB Questionnaire SHANON-7 Date SHANON - 7 assessed: 04/16/22 Source: Developed by Drs. Jose J Veliz, Farida Mahoney, Anand Patten and colleagues, with an educational ezequiel from [employer]. Review of Systems Const Denies body aches, Denies fatigue, Denies fever(s), Denies headache(s) and Denies weakness Eyes Denies change in vision ENT Denies dizziness, Denies headache(s) and Denies nasal congestion Card Denies chest pain, Denies lightheadedness, Denies palpitations and Denies dyspnea Resp Denies chest congestion, Denies cough, Denies dyspnea and Denies wheezing GI Denies abdominal pain, Denies change in bowel habits and Denies heartburn Denies hematuria, Denies urinary frequency, Denies dysuria and Denies urinary urgency Musc Reports no additional complaints Skin/Breast Denies breast pain, Denies breast mass, Denies lesions and Denies rash Neuro Denies dizziness, Denies headache(s) and Denies weakness Psych Reports no additional complaints Endo Denies fatigue, Denies polydipsia, Denies polyuria and Denies palpitations Mk/Lymph Denies easy bruising Aller/Immun Denies seasonal rhinorrhea and Denies wheezing Physical exam (Primary Care) Vital Signs: Last Vital Signs Temp 98.7 F 11/24/24 12:34 Pulse 75 11/24/24 12:34 Resp 16 11/24/24 12:34 BP 140/100 H 11/24/24 12:34 Pulse Ox 99 11/24/24 12:34 Oxygen Delivery Method Room Air 11/24/24 12:34 BMI result Body Mass Index 38.4 Tobacco/Smoking Status: Tobacco use Status Tobacco use date assessed 11/24/24 11/24/24 12:35 Patient Tobacco Use Status Never used Tobacco 11/24/24 12:35 e-Cigarette/Vaping Use Never Used 11/24/24 12:35 Thrive Assessment: Date of Thrive Assessment Date Thrive assessed 07/13/24 11/24/24 12:35 Currently or been in a relationship where the following occur: No concerns reported Const Other: Alert oriented x3, no acute distress noted ambulatory normal gait Orientation/consciousness: patient oriented x3 HENOH Head: Yes normocephalic Ears: external ears normal, TM's normal bilaterally and EAC's normal General nose exam: Normal external nose present Face and sinus: Yes face symmetric Mouth: Normal oral and palatal mucosa present and moist mucous membranes Eyes General: appearance normal, both eyes and all related structures Neck Neck: Yes normal visual inspection, Yes full ROM, Yes no lymphadenopathy and Yes supple Thyroid: Thyroid normal (Nonpalpable) Chest Breast/axilla palpation: normal palpation of the breasts Resp Effort & Inspection: normal respiratory effort and able to speak in complete sentences Auscultation: clear to auscultation bilaterally and no wheezes Cardio Other: S1-S2 present regular rate and rhythm GI Other: Normal bowel sounds, soft, nontender with no mass palpated General: Yes no CVA tenderness Back/Spine/Pelvis Back: no CVA tenderness and No back tenderness Skin General skin exam: no rashes or lesions noted Neuro General: patient oriented x3, gait normal, tone normal, moves all extremities and no focal motor deficits Extrem General: Yes full ROM, Yes no joint enlargement, Yes no clubbing, cyanosis or edema and Yes normal gait Psych Appearance: grossly normal and well kempt Mental Status: mental status grossly normal Speech and movement: Normal speech and movement present Affect: normal affect Results Reviewed Results Reviewed: Name: Neelam Hilton Age/Sex: 34/F : 1990 Unit#: [id number] Attend Dr: Rohini Burnette MD Re11/19/24 Status: DEP REF Location: [facility] Disch: SPEC : [id number] REY: 11/19/24 STATUS: COMP REQ : [id number] RECD: 11/19/[address]: Rohini Burnette MD COMP: 11/19/24 ENTERED: 11/19/[address] [facility] [address]: ORDERED: CBC Auto Diff Test Result Flag Reference WBC 8.7 4.8-10.8 X10*3/uL RBC 4.97 4.20-5.50 X10*6/uL HGB 14.0 12.0-16.0 g/dl HCT 43.1 37.0-47.0 % MCV 86.7 80.0-98.0 fL MCH 28.2 27.0-33.0 pg MCHC 32.5 31.0-35.0 g/dl RDW 13.2 11.0-16.0 % PLT 411 H 160-400 X10*3/uL MPV 10.6 9.4-12.3 fL Neut Pct Auto 70.1 45-73 % ImGran Pct Auto 0.1 0.0-0.4 % Lymp Pct Auto 20.3 20-40 % [place] Pct Auto 6.3 2-11 % Eos Pct Auto 2.5 0-4 % Baso Pct Auto 0.7 0-2 % NRBC Pct Auto 0.0 0.0-0.2 /100WBC ANC Neut Abs # 6.1 2.0-8.3 x10*3/uL ImGran Abs Auto 0.01 0.00-0.03 X10*3/uL Lymph Abs Auto 1.8 1.2-4.9 X10*3/uL [place] Abs Auto 0.6 0.1-1.2 X10*3/uL Eos Abs Auto 0.2 0.0-0.4 X10*3/uL Baso Abs Auto 0.1 0.0-0.2 X10*3/uL NRBC Abs Auto 0.000 0.0-0.012 X10*3/uL Name: Neelam Hilton Age/Sex: 34/F : 1990 Unit#: [id number] Attend Dr: Rohini Burnette MD Re11/19/24 Status: DEP REF Location: [facility] Disch: SPEC : [id number] REY: 11/19/24 STATUS: COMP REQ : [id number] RECD: 11/19/[address]: Rohini Burnette MD COMP: 11/19/24 ENTERED: 11/19/[address]: ORDERED: Met Prof Fast, AST, ALT, Lipid Panel, TSH Rflx Test Result Flag Reference Sodium 137 135-145 mmol/L Potassium 4.9 3.3-5.1 mmol/L CL 106 96-108 mmol/L CO2 22 22-29 mmol/L Gap 14 12-20 BUN 13 9-16 mg/dL Creat 0.84 0.5-1.4 mg/dL eGFR > 60 Chronic Kidney Disease: Estimated GFR < 60 mL/min/1.73m2 Severe Kidney Disease: Estimated GFR < 15 mL/min/1.73m2 FBS 99 60-99 mg/dL CA 9.4 8.4-10.2 mg/dL AST (GOT) 22 5-31 U/L ALT (GPT) 17 0-31 U/L Triglyceride 88 <150 mg/dL Desirable Triglyceride: less than 150 mg/dL Borderline High Triglyceride 150-199 mg/dL High Triglyceride: 200-499 mg/dL Very High Triglyceride: greater than or equal to 5OO mg/dL Cholesterol 166 <200 mg/dL Desirable Cholesterol: less than 200 mg/dL Borderline High Cholesterol: 200-239 mg/dL High Cholesterol: greater than 239 mg/dL LDL Calculated 109 H <100 mg/dL Desirable LDL: less than 100 mg/dL Near Optimal/Above Optimal LDL: 110-129 mg/dL Borderline High LDL: 130-159 mg/dL High LDL: 160-189 mg/dL Very High LDL: greater than or equal to 190 mg/dL HDL 40 L >40 mg/dL Desirable HDL: greater than 40 mg/dL Note: This HDL assay may give artificially low results in patients with liver disease. TSH 1.66 0.32-4.0 uIU/mL Coding Level of Care Code Est Pt Prev Care 18-39y(52362) Diagnoses Annual visit for general adult medical examination with abnormal findings Z00.01 Essential hypertension I10 Generalized anxiety disorder F41.1 Assessment & Plan Assessment & Plan (1) Annual visit for general adult medical examination with abnormal findings: Code(s): Z00. - Encounter for general adult medical examination with abnormal findings Plan: Reviewed recent fasting lab results with patient. Recommended dental visit every 6 months and regular eye exams, at least every 2 years. Take adequate calcium in diet and vitamin-D 3 at 2000 IU per cap once a day, in addition to weight-bearing exercises to help maintain good muscle tone and weight control. Instructed to do self-breast exam, and recommended to get yearly mammogram, starting at age 40. Goes to her own OBGYN for her routine Pap and pelvic exam currently up-to-date. Immunization information provided: Yearly flu vaccine and COVID booster recommended. (2) Essential hypertension: Code(s): I10 - Essential (primary) hypertension Category: Medical (3) Generalized anxiety disorder: Code(s): F41.1 - Generalized anxiety disorder Category: Medical Plan Patient was informed and verbally consented to the use of an ambient scribe for clinic note documentation during this visit. 1. Essential Hypertension The patient is currently on labetalol 50 mg twice daily for hypertension management, with recent blood pressure readings of 153/90 mmHg and 140/100 mmHg. There is a consideration to adjust the dosage to 100 mg in the morning and 50 mg at night to better control blood pressure. 2. Infertility The patient has been attempting to conceive for six years with a history of ectopic pregnancies and a suspected diagnosis of endometriosis. Previous embryo transfers included a fresh transfer that did not take and a frozen transfer resulting in an intrauterine muscular ectopic . 3. Hyperlipidemia Recent lab results show an increase in LDL cholesterol from 88 to 109 mg/dL, although total cholesterol has decreased due to lower triglycerides. The patient is advised to continue monitoring lipid levels and maintain a healthy diet and exercise regimen.
[2024-11-24 12:34] VITALS: BP 140/100; PULSE 75; RESP 16; TEMP 37.1; O2SAT 99; BMI 38.4
--- OUTSIDE RECORDS SUMMARY | 2024-11-24 14:59 | XMS_ITS | Clinical Summary ---
Author Organization [facility] Facility Address [address] [place] [address] Care Team Providers Care Locksmith Helper Name Role Phone Tracy Burnette MD Primary Care Provider [phone] Social History Tobacco Use Types Packs/Day Years [...] this topic Insurance [employer]ign[employer] C[employer] Care Teams Locksmith Helper Relationship Specialty Start Date End Date Tracy Burnette MD [facility] [place] [address] PCP - General Internal Medicine 04/30/22
--- OUTSIDE RECORDS SUMMARY | 2024-11-24 15:00 | XMS_ITS | Patient Health Record ---
Demographics Address [address] [place] [address] Mobile Preferred Language en Marital Status unmarried Synagogue Affiliation Unknown Race White Ethnic Group Not or Lati no Author Organization [facility] Address [address] [place] [address] Care Team Providers Care Clinical Account Manager Name Role Phone Xiomy Ogden Unavailable [phone] Reason For Referral No Information Immunizations Vaccine [...] Status Risk Notes Problem Gynecological examination normal ([id number]) Routine gynecological examination (V72.31) Active confirmed Diag Plan Of Treatment Pending Test Test Name Order Date TYPE AND SCREEN 08/02/2015 Insurance Providers Payer Name Payer Address Payer Phone Subscriber Number Group Number Insured Name Patient Relationship to Insured Coverage Start Date Coverage End Date [facility] [address] [place] [address] [id number] RENETTA FITZPATRICK Self - patient is the insured Medical (General) History Medical History History ICD Code PE Tubes Pelvic and perineal pain R10.2 Surgical History Surgery Date(Month/Year) PE Tubes Appendectomy with Dr. Urena 08/[address] 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
== END 2024-11-24 13:20 | disposition home or self-care (01) ==
LOC: HO.HMCC 12:32
PROVIDERS: PCP Internal Medicine; Visit Provider Internal Medicine
DX: Z00.01 Encounter for general adult medical examination with abnormal findings (principal); I10 Essential (primary) hypertension; F41.1 Generalized anxiety disorder